=== PATIENT | female | born 1975 | race Caucasian/White ===

== ENCOUNTER 2021-01-14 07:54 | Day surgery (SDC) | payer OTHER ==
[2021-01-14 08:17] LABS: Specific Gravity 1.025 (1.005-1.030)
[2021-01-14] MEDS ORDERED: Ringers Lactate 1,000 ML IV ONE ×4 (08:17→15:53)
[2021-01-14] MEDS ORDERED: SCOPOLAMINE HYDROBROMIDE PATCH TD ONE ×2 (08:17→08:30)
[2021-01-14] MEDS ORDERED: CEFAZOLIN/SWI 1gm 1 GM/10 ML SYR ONE (08:17)
[2021-01-14] MEDS ORDERED: dexAMETHasone 10 MG/ML VIAL ONE (08:32)
[2021-01-14] MEDS ORDERED: propofoL 200 MG/20 ML VIAL IV ONE (08:32)
[2021-01-14] MEDS ORDERED: FENTANYL CITR 250 MCG/5 ML ONE ×2 (08:32→11:50)
[2021-01-14] MEDS ORDERED: ROCURONIUM 50 MG/5 ML VIAL IV ONE (08:32)
[2021-01-14] MEDS ORDERED: MIDAZOLAM HCL 2 MG/2 ML INJ ONE (08:32)
[2021-01-14] MEDS ORDERED: LIDOCAINE 2% MPF 5 ML VIAL ONE (08:32)
[2021-01-14] MEDS ORDERED: KETAMINE HCL 500 MG/5 ML VIAL ONE (08:32)
[2021-01-14] MEDS ORDERED: ONDANSETRON 4 MG/2 ML VIAL ONE ×2 (08:33→15:33)
[2021-01-14] MEDS ORDERED: NS 0.9% VIAL 40 ML ONE (08:51)
[2021-01-14] MEDS ORDERED: BACITRACIN 50000 UNIT VIAL ONE (08:52)
[2021-01-14] MEDS ORDERED: CEFAZOLIN SODIUM 1 GM/VIAL ONE (08:52)
[2021-01-14] MEDS ORDERED: Mastisol Adhesive Liq ONE (08:52)
[2021-01-14] MEDS ORDERED: LIDOCAINE 1% W/EPI 1:100,000 MDV 20 ML VIAL ONE (08:52)
[2021-01-14] MEDS ORDERED: GENTAMICIN SULF 80 MG/2ML INJ ONE (08:52)
[2021-01-14] MEDS ORDERED: VECURONIUM 10 MG/VIAL IV ONE (10:36)
[2021-01-14] MEDS ORDERED: KETOROLAC 30 MG/ML INJ ONE (13:55)
[2021-01-14] MEDS ORDERED: MORPHINE 10 MG/ML VIAL ONE (14:35)
[2021-01-14] MEDS ORDERED: FENTANYL CITR 100 MCG/2 ML ONE (15:33)
[2021-01-14] MEDS ORDERED: MORPHINE 4 MG/ML SYR ONE (15:34)
[2021-01-14] MEDS ORDERED: CODEINE 30MG/APAP 300MG TAB ONE (17:03)
[2021-01-14 17:18] VITALS: BP 125/76
[2021-01-14 18:22] VITALS: TEMP 97.8; O2SAT 97
--- NOTE | 2021-01-14 23:13 | OP ---
Surgeon: Zander San MD Preoperative Diagnosis: Breast descent and scarred umbilicus. Postoperative Diagnosis: Breast descent and scarred umbilicus. Procedure Performed: Breast lift, umbilical revision. Anesthesia: General. Procedure In Detail: After satisfactory induction of general anesthesia, abdomen and breasts were prepped with DuraPrep. Dry sterile drapes were applied in the usual manner. A 5 cm template was used to outline the right and left areolas and then the transverse curvilinear incisions were made with scalpel. The skin was de-epithelialized with a dermabrader and EpiCut. Then a transverse incision was made in the right breast and flap was elevated towards, sternum, clavicle and anterior axillary line. Then the inferior incision was made. Excess breast tissue laterally was removed using electrocautery. Then, the cone was formed using 2-0 PDS suture. Straps were elevated at 12 o'clock, 1:30 and 3 o'clock position. Then the straps were woven in and out of the pectoralis muscle back to the base of the cone back to the pectoralis muscle back to the base of the cone, tied themselves with 2-0 PDS suture. Straps were elevated at 12 o'clock, 1:30 and 3 o'clock position. Strap was sewn over the sternum at 3 o'clock position with 2-0 Ethibond. Left side done in a mirror-image manner. The wounds were typically stapled shut. Lateral dog ears were marked out and were excised. The patient was returned to supine and then the wounds were irrigated with antibiotic solution. 10 VICKY was brought out of the axilla, sewn in place with 2-0 silk and then the wound was closed with 3-0 Vicryl subcutaneous and 3-0 PDS running subcuticular, tied from lateral to medial and medial to lateral, tied in the vertical meridian of the breast. Both sides were done and the patient was sat up. Site for new nipple-areolar complex was marked out. Tissue was cored out with a 5 cm template and nipple areolar complex delivered, sewn with interrupted 4-0 PDS followed by 4-0 PDS running subcuticular. Dressings consisted of tincture of benzoin, Steri-Strips followed by Esmarch, fluffs, and Buster wrap. The umbilicus was approached. Elliptical incision was made excising the old scar and then the umbilicus was cut on traction. Next, this umbilicus was dissected. This was a very excellent stump. Dissection was carried down to fascia layer. 2-0 PDS sutures were placed at 12 o'clock and 6 o'clock position on the fascia to the umbilical stump and the surrounding tissue pulling it in the 12 o'clock and 6 o'clock position and running 4-0 PDS was used to close the wound followed by Xeroform dressing. The patient tolerated the procedure well. The amount of breast tissue removed from right was 296 and left was 308. FAYE/JASON Voice ID: [id number] Report ID: [id number]
== END 2021-01-14 18:16 | disposition home health service (06) ==
LOC: OR 07:54
PROVIDERS: ATTEND Specialist
PROC: 0HB7XZZ Excision of Abdomen Skin, External Approach (ICD-10-PCS; 2021-01-14)
PROC: 0HSV0ZZ Reposition Bilateral Breast, Open Approach (ICD-10-PCS; principal; 2021-01-14 09:00)
DX: N64.81 Ptosis of breast (principal); L90.5 Scar conditions and fibrosis of skin
CPT/HCPCS: 19316; 81025; 88305; 11403; J2704; J1580; J2250; J3010 ×2; J1100; J0690 ×2; J7120 ×4; J2405 ×2